=== PATIENT | female | born 1970 | race Caucasian/White ===

== ENCOUNTER 2021-03-30 02:28 | Emergency (ER) | payer SELFPAY ==
[~2021-03-30] VITALS: Ht 152.4 cm; Wt 63.5 kg
[~2021-03-30 02:28] MED LIST: CARI350 PO; CEPH500 PO; HYDACE10B PO; IBUP800 PO; KETO10 PO; LEVFLO500 PO; OXYC10ER PO; PROC10 PO; Percocet 5-3251 EACH PO; TRAM50 PO
[2021-03-30 03:45] LABS: BASOPHILS ABSOLUTE AUTO 0.07 K/mm3 (0.00-0.23); BASOPHILS PERCENT AUTO 1 % (0-2); EOSINOPHILS ABSOLUTE AUTO 0.18 K/mm3 (0.00-0.68); EOSINOPHILS PERCENT AUTO 2 % (0-6); Hematocrit 43.3 % (33.0-51.0); Hemoglobin 14.5 g/dL (11.5-16.0); IMMATURE GRAN ABSOLUTE AUTO 0.03 K/mm3 (0.00-0.10); IMMATURE GRAN PERCENT AUTO 0 % (0-1); LYMPHOCYTES PERCENT AUTO 16 % (21-46); MONOCYTES ABSOLUTE AUTO 0.61 K/mm3 (0.16-1.47); MONOCYTES PERCENT AUTO 6 % (4-13); Mean Corpuscular HGB 30.5 pg (26.0-34.0); Mean Corpuscular HGB Conc 33.5 g/dL (31.5-36.5); Mean Corpuscular Volume 91 fL (80-100); Mean Platelet Volume 10.9 fL (9.1-12.4); NEUTROPHILS ABSOLUTE AUTO 7.71 K/mm3 (1.96-9.15); NEUTROPHILS PERCENT AUTO 76 % (41-73); Platelet Count 248 K/mm3 (150-400); RDW Coefficient Variation 12.2 % (11.7-14.2); RDW Standard Deviation 40.8 fL (35.1-46.3); Red Blood Cell Count 4.76 M/mm3 (3.80-5.20)
[2021-03-30 04:03] LABS: Albumin, Blood 4.3 g/dL (3.4-5.0); Bilirubin, Total 0.5 mg/dL (0.1-1.0); Bun/Creatinine Ratio 21.2 (12.0-20.0); Calcium, Blood 9.5 mg/dL (8.5-10.1); Creatinine, Blood 1.13 mg/dL (0.40-1.00); Globulin, Blood 4.1 g/dL (2.2-4.0); Potassium, Blood 3.3 mmol/L (3.5-5.5); Total Protein, Blood 8.4 g/dL (6.4-8.2)
[2021-03-30 04:45] LABS: Source, Urine Clean Catch
[2021-03-30 04:47] LABS: Bilirubin, Urine Neg (Neg); Blood, Urine 4+ (Neg); Glucose Qualitative, Urine Neg (Neg); Ketones, Urine 2+ (Neg); Leukocyte Esterase, Urine 2+ (Neg); Nitrite, Urine Pos (Neg); Protein, Urine 1+ (Neg); Urobilinogen, Urine NORM (Normal)
[2021-03-30 04:53] LABS: Appearance, Urine Hazy (Clear); Color, Urine Yellow (P-Yellow)
[2021-03-30 05:09] LABS: White Blood Cells, Urine TNTC /hpf (0-5)
[2021-03-30 05:10] LABS: Amorphous Light (0-Heavy); Bacteria Many /hpf; Mucus Light (0-Heavy); Squamous Epithelial Cells Mod /hpf (Few)
[2021-03-30] MEDS ORDERED: Flomax0.4 MG PO (05:12)
[2021-03-30] MEDS ORDERED: Norco 5-325 Ta1 EACH PO (05:12)
== END 2021-03-30 05:20 | disposition home or self-care (01) ==
LOC: ER 02:28
PROVIDERS: Student in an Organized Health Care Education/Training Program
DX: N13.2 Hydronephrosis with renal and ureteral calculous obstruction (principal); F17.210 Nicotine dependence, cigarettes, uncomplicated
CPT/HCPCS: 74176; 80053; 81001; 85025; 87077; 87086; 87186; 96374; 96375; 99284-25; J1885; J2405; J7030

== ENCOUNTER 2023-05-15 17:20 | Emergency (ER) | payer OTHER ==
[~2023-05-15] VITALS: Ht 152.4 cm; Wt 63.5 kg
[~2023-05-15 17:20] MED LIST changes: +Flomax0.4 MG PO; +Norco 5-325 Ta1 EACH PO
[2023-05-15 17:58] VITALS: BP 118/80
[2023-05-15 18:53] LABS: Influenza A, PCR NEGATIVE (NEGATIVE); Influenza B, PCR NEGATIVE (NEGATIVE); Resp Syncytial Virus, PCR NEGATIVE (NEGATIVE); SARS-Cov-2 (COVID-19) PCR, MMC NEGATIVE (NEGATIVE)
[2023-05-16] MEDS ORDERED: BENZ100A PO (03:04)
== END 2023-05-15 19:25 | disposition home or self-care (01) ==
LOC: ER 17:20
PROVIDERS: Student in an Organized Health Care Education/Training Program
DX: J40 Bronchitis, not specified as acute or chronic (principal); F17.210 Nicotine dependence, cigarettes, uncomplicated; Z20.822 Contact with and (suspected) exposure to COVID-19; Z88.0 Allergy status to penicillin
CPT/HCPCS: 0241U; 71046; 99283-25

== ENCOUNTER → 2023-09-09 | Outpatient (CLI) | payer OTHER ==
[~2023-09-09] MED LIST changes: +BENZ100A PO
== END ==
LOC: LAB 13:13 → LAB SHORT 13:13
DX: N39.0 Urinary tract infection, site not specified (principal)
CPT/HCPCS: 87077; 87086; 87186

== ENCOUNTER 2024-04-06 21:18 | Emergency (ER) | payer OTHER ==
[~2024-04-06] VITALS: Ht 154.9 cm; Wt 63.5 kg
[2024-04-06 21:27] VITALS: BP 134/91
[2024-04-06] MEDS ORDERED: Cleocin HCl150 MG PO (22:10)
[2024-04-06] MEDS ORDERED: Clindamycin HCl 150 MG Cap PO ONE (22:10)
== END 2024-04-06 22:23 | disposition home or self-care (01) ==
LOC: ER 21:18
DX: K04.7 Periapical abscess without sinus (principal); Z88.0 Allergy status to penicillin; Z79.899 Other long term (current) drug therapy; F17.210 Nicotine dependence, cigarettes, uncomplicated
CPT/HCPCS: 64400; 99282-25; A9270

== ENCOUNTER 2025-04-25 03:20 | Emergency (ER) | payer OTHER ==
[~2025-04-25] VITALS: Ht 152.4 cm; Wt 59.0 kg
[~2025-04-25 03:20] MED LIST changes: +Cleocin HCl150 MG PO
[2025-04-25 03:30] VITALS: BP 136/76
== END 2025-04-25 05:12 | disposition home or self-care (01) ==
LOC: ER 03:20
DX: S93.401A Sprain of unspecified ligament of right ankle, initial encounter (principal); F17.210 Nicotine dependence, cigarettes, uncomplicated; Z88.0 Allergy status to penicillin; Z59.89 Other problems related to housing and economic circumstances; W17.2XXA Fall into hole, initial encounter
CPT/HCPCS: 73610; 99283-25; A9270

== ENCOUNTER 2025-09-17 11:53 | Emergency (ER) | payer OTHER ==
[~2025-09-17] VITALS: Ht 165.1 cm; Wt 65.3 kg
[2025-09-17 11:53] VITALS: BP 122/88
[2025-09-17] MEDS ORDERED: Morphine Sulfate 4 MG/1 ML Injection IV ONE ×2 (12:05→13:20)
[2025-09-17 12:29] LABS: BASOPHILS ABSOLUTE AUTO 0.08 K/mm3 (0.00-0.23); BASOPHILS PERCENT AUTO 0 % (0-2); EOSINOPHILS ABSOLUTE AUTO 0.15 K/mm3 (0.00-0.68); EOSINOPHILS PERCENT AUTO 1 % (0-6); Hematocrit 43.3 % (33.0-51.0); Hemoglobin 14.3 g/dL (11.5-16.0); IMMATURE GRAN ABSOLUTE AUTO 0.27 K/mm3 (0.00-0.10); IMMATURE GRAN PERCENT AUTO 1 % (0-1); LYMPHOCYTES ABSOLUTE AUTO 1.43 K/mm3 (0.84-5.20); LYMPHOCYTES PERCENT AUTO 6 % (21-46); MONOCYTES ABSOLUTE AUTO 1.21 K/mm3 (0.16-1.47); MONOCYTES PERCENT AUTO 5 % (4-13); Mean Corpuscular HGB Conc 33.0 g/dL (31.5-36.5); Mean Corpuscular Volume 93 fL (80-100); NEUTROPHILS ABSOLUTE AUTO 19.18 K/mm3 (1.96-9.15); NEUTROPHILS PERCENT AUTO 86 % (41-73); NRBC ABSOLUTE 0.00 K/mm3 (0.00-0.02); NRBC Auto 0.0 /100 WBC (0.0-0.2); Platelet Count 323 K/mm3 (150-400); RDW Coefficient Variation 12.1 % (11.7-14.2); RDW Standard Deviation 41.8 fL (35.1-46.3)
[2025-09-17 12:33] LABS: Calcium, Ionized (POC) 1.14 mmol/L (1.10-1.46); Chloride (POC) 107 mmol/L (98-108); Creatinine (POC) 1.0 mg/dL (0.6-1.0); Glucose (ISTAT POC) 136 mg/dL (70-99); Hematocrit (POC) 46.0 % (36.0-46.0); Hemoglobin (POC) 15.6 g/dL (12.0-16.0); Potassium (POC) 4.5 mmol/L (3.5-5.5); Sodium (POC) 142 mmol/L (135-148); Total CO2 (POC) 25 mmol/L (21-32)
[2025-09-17 12:54] LABS: Alanine Aminotransfer (ALT/SGP 45 U/L (12-78); Albumin, Blood 4.0 g/dL (3.4-5.0); Albumin/Globulin Ratio 1.1 (0.8-1.8); Anion Gap 8 mmol/L (3-11); Aspartate Aminotrans (AST/SGOT 62 U/L (12-37); Bilirubin, Total 0.5 mg/dL (0.1-1.0); Blood Urea Nitrogen 16 mg/dL (8-24); CO2, Blood 25 mmol/L (21-32); Calcium, Blood 9.1 mg/dL (8.5-10.1); Chloride, Blood 109 mmol/L (98-108); Creatinine, Blood 0.93 mg/dL (0.40-1.00); Ethanol (Alcohol), Blood, Med <3 mg/dL; Globulin, Blood 3.7 g/dL (2.2-4.0); Glucose, Blood 130 mg/dL (70-99); Potassium, Blood 3.6 mmol/L (3.5-5.5); Sodium, Blood 138 mmol/L (136-145); Total Protein, Blood 7.7 g/dL (6.4-8.2)
[2025-09-17 13:31] LABS: Prothrombin Time Results 11.9 Sec (9.7-11.5)
[2025-09-17] MEDS ORDERED: LORazepam 2 MG/ML 1ML Injection IV ONE (14:25)
[2025-09-17] MEDS ORDERED: NS 1,000 ML IV SCH (15:00)
[2025-09-17] MEDS ORDERED: Naloxone HCl 0.4MG / ML 1ML Vial ONE (15:12)
[2025-09-17] MEDS ORDERED: Naloxone HCl 0.4MG / ML 1ML Vial IV ONE (15:15)
== END 2025-09-17 15:42 | disposition home or self-care (01) ==
LOC: ER 11:53
PROVIDERS: Student in an Organized Health Care Education/Training Program
DX: S06.6X9A Traumatic subarachnoid hemorrhage with loss of consciousness of unspecified duration, initial encounter (principal); S22.43XA Multiple fractures of ribs, bilateral, initial encounter for closed fracture; S42.215A Unspecified nondisplaced fracture of surgical neck of left humerus, initial encounter for closed fracture; S01.01XA Laceration without foreign body of scalp, initial encounter; V89.2XXA Person injured in unspecified motor-vehicle accident, traffic, initial encounter; F17.210 Nicotine dependence, cigarettes, uncomplicated; Z88.0 Allergy status to penicillin
CPT/HCPCS: 70450; 71260; 72125; 73030; 74177; 80047; 80053; 80320; 83690; 85014; 85025; 85610; 86850; 86900; 86901; J1953; J2060; J2270; J2312; J7120; Q9967

== ENCOUNTER 2025-10-02 15:10 | Emergency (ER) | payer OTHER ==
[~2025-10-02] VITALS: Ht 152.4 cm; Wt 59.0 kg
[2025-10-02 16:18] LABS: BASOPHILS ABSOLUTE AUTO 0.07 K/mm3 (0.00-0.23); BASOPHILS PERCENT AUTO 1 % (0-2); EOSINOPHILS ABSOLUTE AUTO 0.38 K/mm3 (0.00-0.68); EOSINOPHILS PERCENT AUTO 4 % (0-6); Hematocrit 30.3 % (33.0-51.0); Hemoglobin 10.0 g/dL (11.5-16.0); IMMATURE GRAN ABSOLUTE AUTO 0.05 K/mm3 (0.00-0.10); IMMATURE GRAN PERCENT AUTO 1 % (0-1); LYMPHOCYTES ABSOLUTE AUTO 1.53 K/mm3 (0.84-5.20); LYMPHOCYTES PERCENT AUTO 16 % (21-46); MONOCYTES ABSOLUTE AUTO 0.74 K/mm3 (0.16-1.47); MONOCYTES PERCENT AUTO 8 % (4-13); Mean Corpuscular HGB Conc 33.0 g/dL (31.5-36.5); Mean Corpuscular Volume 94 fL (80-100); NEUTROPHILS ABSOLUTE AUTO 6.86 K/mm3 (1.96-9.15); NEUTROPHILS PERCENT AUTO 71 % (41-73); NRBC ABSOLUTE 0.00 K/mm3 (0.00-0.02); NRBC Auto 0.0 /100 WBC (0.0-0.2); Platelet Count 764 K/mm3 (150-400); RDW Coefficient Variation 14.8 % (11.7-14.2); RDW Standard Deviation 49.9 fL (35.1-46.3)
[2025-10-02 16:46] LABS: Alanine Aminotransfer (ALT/SGP 28.0 U/L (12-78); Albumin, Blood 3.3 g/dL (3.4-5.0); Albumin/Globulin Ratio 0.8 (0.8-1.8); Anion Gap 8.0 mmol/L (3-11); Aspartate Aminotrans (AST/SGOT 13.0 U/L (12-37); Bilirubin, Total 0.6 mg/dL (0.1-1.0); Blood Urea Nitrogen 17.0 mg/dL (8-24); CO2, Blood 28.0 mmol/L (21-32); Calcium, Blood 9.2 mg/dL (8.5-10.1); Chloride, Blood 108.0 mmol/L (98-108); Creatinine, Blood 0.63 mg/dL (0.40-1.00); Globulin, Blood 4.2 g/dL (2.2-4.0); Glucose, Blood 116.0 mg/dL (70-99); Potassium, Blood 4.0 mmol/L (3.5-5.5); Sodium, Blood 140.0 mmol/L (136-145); Total Protein, Blood 7.5 g/dL (6.4-8.2)
[2025-10-02] MEDS ORDERED: OxyCODONE 5 mg/Acetamin 325 mg TABLET PO ONE (17:55)
[2025-10-02 18:00] VITALS: BP 127/86
[2025-10-02] MEDS ORDERED: RX Prepack 6 Tabs Oxycodone 5mg UD ONE (18:15)
[2025-10-02] MEDS ORDERED: OXAYDO5 M1 PO (18:19)
== END 2025-10-02 18:43 | disposition home or self-care (01) ==
LOC: ER 15:10
PROVIDERS: Student in an Organized Health Care Education/Training Program
DX: G96.00 Cerebrospinal fluid leak, unspecified (principal); S93.402A Sprain of unspecified ligament of left ankle, initial encounter; M95.4 Acquired deformity of chest and rib; D64.9 Anemia, unspecified; F17.210 Nicotine dependence, cigarettes, uncomplicated; Z88.0 Allergy status to penicillin
CPT/HCPCS: 70450; 71046; 73610; 80053; 84484; 85025; 99284-25; A9270